=== PATIENT | female | born 1955 | race Caucasian/White ===

== ENCOUNTER 2023-07-13 08:17 | Emergency (ER) | payer MEDICARE, BC, SELFPAY ==
[2023-07-13 08:24] VITALS: BP 185/88; PULSE 72; RESP 18; TEMP 36.8; O2SAT 97; BMI 34.1
--- NOTE | 2023-07-13 08:54 | ED_ITS ---
HPI - Skin/Abscess/Foreign Bdy General Time Seen by Provider: 08:54 Date Seen: 07/13/23 Chief complaint: Skin/Abscess/Foreign Body Stated complaint: L ear pain Time Seen by Provider: 07/13/23 08:54 Source: patient Mode of arrival: ambulatory Limitations: no limitations History of Present Illness HPI narrative: Dorothy is a very pleasant 67-year-old female previously healthy who comes to the emergency room for evaluation of pain behind her ear. Patient had the onset of her discomfort on the evening of July 09. She describes as as a throbbing pain it occasionally radiates beneath her left ear and into her lower jaw. She notes no pain in her ear and she has not had any drainage, recent illness or fever. She was seen in urgent care yesterday at which time they put her on Nasonex as well as a steroid. 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 She notes that the pain is worsening today. She denies chest pain shortness of breath or any head trauma. notes that they thought maybe she needed an MRI which of course we are unable to do today. She has had 1 shingles vaccination. She has had no recent ill exposures. Movement or resting does not seem to change her pain. Related Data Home Medications Medication Instructions Recorded Confirmed metoprolol succinate 100 mg 100 mg PO DAILY 07/13/23 07/13/23 tablet,extended release 24 hr Previous Rx's Medication Instructions Recorded hydrocodone 5 mg-acetaminophen 325 1 tab PO Q6H PRN pain #14 tabs 07/13/23 mg tablet valacyclovir 1 gram tablet 1,000 mg PO TID #21 tabs 07/13/23 (Valtrex) Allergies Allergy/AdvReac Type Severity Reaction Status Date / Time No Known Drug Allergies Allergy Verified 07/13/23 08:23 Review of Systems Status of ROS: Reports: 10 or more systems reviewed and unremarkable except as noted in History and below Const: Reports: change in sleep pattern; Denies: fever, chills or fatigue Eyes: Denies: change in vision ENMT: Reports: other (No change in taste or numbness of the tongue.); Denies: throat pain, throat swelling, difficulty swallowing or mouth pain Cardio: Denies: chest pain or shortness of breath with exertion Resp: Denies: shortness of breath GI: Reports: vomiting (A few days ago but is now taking food without difficulty.); Denies: abdominal pain or difficulty swallowing : Denies: painful urination Integ/Breast: Reports: skin pain and skin tenderness Neuro: Denies: headache Endo: Denies: fatigue Allergy/Immuno: Denies: throat swelling PFSH PFS Social History Smoking Status: Never smoker Do you use any of these nicotine containing products: None Second hand tobacco smoke exposure: No How often do you have a drink containing alcohol: 2-4 times a month How many standard drinks containing alcohol do you have on a typical day: 1 or 2 How often do you have six or more drinks on one occasion: Never AUDIT-C Alcohol total score: 2 Non-prescribed substance use: denies use service: No Exam Narrative: Exam Narrative: Dorothy is a very pleasant 67-year-old female. She is rather stoic. She is guarded in her movement. She is nontoxic in appearance. Eyes are clear with EOM is full. Oral cavity with moist mucous membranes. Neck is supple without lymphadenopathy. Examination of the mastoid area shows a few patches of erythema. In the mid aspect she seems to have increased mass effect but when I look on the right side it is the same. This appears to be wear her glasses contact the mastoid area. On the left however she has a few erythematous patches. They are macular in nature in the hairline only 2. However immediately anterior to the ear there is a small area with tiny superficial blistering. She has another 2 areas on her jaw and then onto her anterior neck there are additional lesions. These do not cross the midline. Of note she does have rosacea type lesions on her cheeks. These lesions that I am speaking of ranged from 4 mm to 1 cm. Heart with regular rate and rhythm and lungs are clear. Const: Vital Signs, click to edit/add: Vital Signs - 24 hr 07/13/23 08:24 Temperature 98.2 F Pulse Rate [Pulse Oximeter] 72 Respiratory Rate 18 Blood Pressure [Le ft Forearm] 185/88 H Pulse Oximetry 97 Oxygen Delivery Me thod Room Air Documenting provider has reviewed patient's vital signs: yes Course Course ED Course: At this time differential diagnosis includes otitis externa, otitis media, mastoiditis, shingles. Patient has a normal ear exam with no evidence of otitis media. There are no lesions in the canal and patient has no pain with external motion of the ear. I strongly suspect shingles given this appearance. Symptoms did start on Friday night going into morning. However there were no lesions noted yesterday per patient and no mention of that at urgent care. Vital Signs Vital signs: Initial Vital Signs Temperature 98.2 F 07/13/23 08:24 Temperature Source Temporal Artery Scan 07/13/23 08:24 Pulse Rate 72 07/13/23 08:24 Pulse Rhythm Regular 07/13/23 08:24 Respiratory Rate 18 07/13/23 08:24 Blood Pressure 185/88 H 07/13/23 08:24 Blood Pressure Mean 120 H 07/13/23 08:24 Blood Pressure Position Sitting 07/13/23 08:24 Pulse Oximetry 97 07/13/23 08:24 Oxygen Delivery Method Room Air 07/13/23 08:24 Vital Signs Temperature 98.2 F 07/13/23 08:24 Pulse Rate 72 07/13/23 08:24 Respiratory Rate 18 07/13/23 08:24 Blood Pressure 185/88 H 07/13/23 08:24 Pulse Oximetry 97 07/13/23 08:24 Oxygen Delivery Method Room Air 07/13/23 08:24 Temperature 98.2 F 07/13/23 08:24 Pulse Rate 72 07/13/23 08:24 Respiratory Rate 18 07/13/23 08:24 Blood Pressure 185/88 H 07/13/23 08:24 Pulse Oximetry 97 07/13/23 08:24 Oxygen Delivery Method Room Air 07/13/23 08:24 MDM - Skin/Abscess/Foreign Bdy MDM Narrative Medical decision making narrative: 1. Shingles-I strongly suspect this is early shingles. Pain started Friday night going into morning. She is over 72 hours of pain symptoms but the onset of these lesions is low more likely within the last 12-18 hours. Will suggest treatment with antiviral Valtrex 1 g p.o. t.i.d. x7 days. Do speak of quarantine and staying away from the elderly, the a knee immunized, those who have not had chickenpox, anybody who is immunocompromised as she is contagious. This is not an area which would be easy to cover. I do talk about wearing a mask and good handwashing if she has to be out in public. This is a little bit of an atypical presentation and therefore I have asked patient to seek medical attention in return for worsening symptoms, high fever, a rash that appears on the opposite side of her face or neck. At this time I do not think she needs an MRI given the above diagnosis. For pain she may use ibuprofen as needed. I have also given her a small supply of [place]vale 11/3250 tablet p.o. Q 6 hours p.r.n. for pain not relieved by ibuprofen. 2. Disposition-home at this time. Seek medical attention for worsening symptoms. Medical Records Attestation: I reviewed the patient's medical records. Discharge Plan Discharge Clinical Impression: Shingles Qualifiers: Herpes zoster complications: without complications Qualified Code(s): B02.9 - Zoster without complications Patient Disposition: Home, Self-Care Condition: Unchanged Additional Instructions: Start VALTREX, an antiviral medication for shingles You do not need prednisone at this time for pain: Ibuprofen as needed For pain not relieved by ibuprofen, use [place] ( a combination of hydrocodone, a narcotic, and tylenol) for pain. This is a narcotic and will make you tired and can cause constipation. Expect rash to worsen. Prescriptions: New valacyclovir [Valtrex] 1 gram tablet 1,000 mg PO TID Qty: 21 0RF hydrocodone-acetaminophen 5-325 mg tablet 1 tab PO Q6H PRN (Reason: pain) Qty: 14 0RF No Action metoprolol succinate 100 mg tablet extended release 24 hr 100 mg PO DAILY Follow Up/Referrals: Dipak Leiva MD [Staff Physician] - Stand Alone [facility]: [facility] Info Instructions
== END 2023-07-13 09:33 | disposition home or self-care (01) ==
LOC: ED 09:28
PROVIDERS: Emergency Provider Family Medicine
DX: B02.9 Zoster without complications (principal)
CPT/HCPCS: 99283